=== PATIENT | male | born 1970 | race Caucasian/White ===

== ENCOUNTER 2017-06-01 10:30 | Emergency (ER) | payer OTHER ==
[~2017-06-01] VITALS: Ht 190.5 cm; Wt 101.3 kg
[2017-06-01 10:33] VITALS: BP 132/86
[2017-06-01] MEDS ORDERED: KETOROLAC 30 MG/1 ML IM ONE (11:00)
[2017-06-01 11:04] LABS: MICROSCOPIC NOT IND
[2017-06-01] MEDS ORDERED: KETOROLAC 30 MG/1 ML ONE (12:19)
== END 2017-06-01 12:31 | disposition home or self-care (01) ==
LOC: ED 12:25
DX: R09.1 Pleurisy (principal)
CPT/HCPCS: 71046; 76770; 81003; 96372; 99285; J1885